=== PATIENT | male | born 1985 | race Caucasian/White ===

== ENCOUNTER 2023-08-07 12:58 | Emergency (ER) | payer MEDICAID ==
[~2023-08-07] VITALS: Ht 170.2 cm; Wt 79.0 kg
[2023-08-07 13:05] VITALS: O2SAT 99
[2023-08-07 19:16] VITALS: BP 111/79; PULSE 70; RESP 15; TEMP 97.6
== END 2023-08-07 21:54 | disposition home or self-care (01) ==
LOC: ER 13:15
DX: F10.129 Alcohol abuse with intoxication, unspecified (principal); Y90.9 Presence of alcohol in blood, level not specified
CPT/HCPCS: 99283